=== PATIENT | female | born 1985 | race African-American/Black ===

== ENCOUNTER 2021-04-27 14:40 | Emergency (ER) | payer SELFPAY ==
[~2021-04-27] VITALS: Ht 162.6 cm; Wt 89.8 kg
[2021-04-27 14:45] VITALS: BP 126/90
--- NOTE | 2021-04-27 14:48 | NUR ---
PATIENT SENT TO LOBBY
[2021-04-27] MEDS ORDERED: diazePAM 5 MG TAB PO ONE (15:30)
[2021-04-27] MEDS ORDERED: DEXAMETHASONE 10 MG/ML VIAL IM ONE (15:30)
[2021-04-27] MEDS ORDERED: KETOROLAC 30 MG/ML VIAL IM ONE (15:30)
[2021-04-27] MEDS ORDERED: DEXAMETHASONE 10 MG/ML VIAL ONE (17:55)
[2021-04-27] MEDS ORDERED: diazePAM 5 MG TAB ONE (17:55)
[2021-04-27] MEDS ORDERED: KETOROLAC 30 MG/ML VIAL ONE (17:55)
--- NOTE | 2021-04-27 18:05 | NUR ---
35 Y/O FEMALE BIB SELF C/O BODY PAIN X3.5 WEEKS. PATIENT STATES SHE HAD "360 LIPO AND LIPO ON ARMS" ON 04/01/21 [place]. PT STATES SHE HAS BEEN IN 04/14 PAIN SINCE AND FINDS NO RELIEF FROM PAIN MEDS PRESCRIBED. PT DESCRIBES PAIN "CRINGY", "TIGHTNESS" AND REPORTS FEELING NUMB FROM THE PAIN. PT A/O X4 WITH EVEN AND UNLABORED RESPIRATIONS. MEDHX: DENIES ALLERGIES: SEAFOOD
[2021-04-27] MEDS ORDERED: IBUP-2213 PO (18:48)
[2021-04-27] MEDS ORDERED: ACET-8386 PO (18:48)
[2021-04-27 18:55] VITALS: BP 126/90
--- NOTE | 2021-04-27 18:55 | NUR ---
Patient discharged with v/s stable. Written and verbal after care instructions given and explained. Patient alert, oriented and verbalized understanding of instructions. Ambulatory with steady gait. All questions addressed prior to discharge. ID band removed. Patient advised to follow up with PMD. Rx of MOTRIN AND HYDROCODONE/ACETAMINOPHEN given. Patient educated on indication of medication including possible reaction and side effects. Opportunity to ask questions provided and answered.
== END 2021-04-27 18:55 | disposition home or self-care (01) ==
LOC: MED 14:40
DX: M79.10 Myalgia, unspecified site (principal); Z91.013 Allergy to seafood
CPT/HCPCS: 96372; 99284; J1100; J1885